=== PATIENT | female | born 1985 | race African-American/Black ===

== ENCOUNTER 2018-11-10 20:23 | Emergency (ER) | payer SELFPAY | END 2018-11-10 21:59 | disposition home or self-care (01) | LOC: E/R 21:59 | DX: L02.415 Cutaneous abscess of right lower limb (principal) | CPT/HCPCS: 99283 ==

== ENCOUNTER → 2019-01-25 | Emergency (ER) | payer SELFPAY | END | disposition home or self-care (01) | LOC: FTE 22:10 | DX: S00.12XA Contusion of left eyelid and periocular area, initial encounter (principal); X58.XXXA Exposure to other specified factors, initial encounter; Y92.9 Unspecified place or not applicable | CPT/HCPCS: 99282 ==

== ENCOUNTER 2019-02-07 21:29 | Emergency (ER) | payer SELFPAY ==
[2019-02-07 22:19] LABS: URINE PH (Dip) POC 6.5 (5.0-8.5)
[2019-02-07 22:19] LABS: URINE BLOOD (Dip) POC Negative (NEGATIVE); URINE GLUCOSE (Dip) POC Negative (NEGATIVE); URINE KETONES (Dip) POC Negative (NEGATIVE); URINE LEUKOCYTE EST (Dip) POC Negative (NEGATIVE); URINE NITRITE (Dip) POC Negative (NEGATIVE); URINE TOTAL PROTEIN POC Negative (NEGATIVE)
[2019-02-07 22:24] LABS: ADD MAN DIFF? NO
[2019-02-07] MEDS: SOD CHLORIDE 0.9% 1,000 ML IV (22:25)
[2019-02-07 22:28] LABS: BASOPHILS % 0.1 % (0.0-2.0); EOSINOPHILS # 0.1 10^3/ul (0.0-0.5); EOSINOPHILS % 1.7 % (0.0-7.0); HEMATOCRIT 37.1 % (37.0-47.0); HEMOGLOBIN 12.2 g/dl (12.0-16.0); LYMPHOCYTES # 2.9 10^3/ul (0.8-2.9); LYMPHOCYTES % 40.5 % (15.0-51.0); MEAN CORPUSCULAR HGB CONC 32.9 g/dl (32.0-37.0); MEAN CORPUSCULAR VOLUME 78.9 fl (82.0-101.0); MEAN PLATELET VOLUME 10.6 fl (7.4-10.4); MONOCYTE # 0.3 10^3/ul (0.3-0.9); MONOCYTES % 4.7 % (0.0-11.0); NEUTROPHIL # 3.7 10^3/ul (1.6-7.5); NEUTROPHILS % 52.7 % (39.0-77.0); PLATELET COUNT 203 10^3/UL (140-415); RED CELL DISTRIBUTION WIDTH 14.2 % (11.5-14.5)
[2019-02-07 22:28] LABS: WHITE BLOOD COUNT 7.1 10^3/ul (4.8-10.8)
[2019-02-07] MEDS: DEXAMETHASONE 10 MG/ML 1 ML INJ IV (22:30)
[2019-02-07] MEDS: DICYCLOMINE 10 MG CAP PO (22:30)
[2019-02-07] MEDS: KETOROLAC 15 MG INJ IM (22:32)
[2019-02-07 22:45] LABS: ANION GAP 9 (5-13); BLOOD UREA NITROGEN 11 mg/dl (7-20); CALCIUM 9.2 mg/dl (8.4-10.2); CARBON DIOXIDE 26 mmol/L (21-31); CHLORIDE 104 mmol/L (97-110); CREATININE 0.74 mg/dl (0.44-1.00); Estimated GFR > 60 mL/min (>60); GLUCOSE 123 mg/dl (70-220); POTASSIUM 3.7 mmol/L (3.5-5.1); SODIUM 139 mmol/L (135-144)
[2019-02-07 23:45] LABS: ERYTHROCYTE SEDIMENTATION RATE 35 mm/Hr (0-20)
== END 2019-02-08 00:49 | disposition home or self-care (01) ==
LOC: FTE 02-08 00:49
DX: K51.911 Ulcerative colitis, unspecified with rectal bleeding (principal)
CPT/HCPCS: 36415; 80048; 81003; 81025; 85025; 85651; 96374; 96375; 99284-25